=== PATIENT | female | born 1970 | race Hispanic/Latino ===

== ENCOUNTER 2022-10-03 09:40 | Emergency (ER) | payer BC ==
[~2022-10-03] VITALS: Ht 170.2 cm; Wt 92.1 kg
[2022-10-03 10:13] LABS: BASOPHILS % (AUTO) 0.6 % (0.0-5.0); HEMATOCRIT 34.5 % (36-48); LYMPHOCYTES % (AUTO) 30.7 % (21.0-51.0); MEAN CORPUSCULAR HEMOGLOBIN 25.5 pg (27.0-33.0); MEAN CORPUSCULAR HGB CONC 31.6 g/dL (32.0-36.0); MEAN CORPUSCULAR VOLUME 80.8 fL (79-99); MONOCYTES % (AUTO) 7.9 % (3.0-13.0); NEUTROPHILS % (AUTO) 57.2 % (40.0-77.0); PLATELET COUNT (AUTO) 295 K/uL (130-400); RED BLOOD CELL COUNT(AUTO) 4.27 MIL/uL (4.00-5.50); RED CELL DISTRIBUTION WIDTH 15.8 % (11.0-15.5); WHITE BLOOD COUNT (AUTO) 8.7 K/uL (4.8-10.8)
[2022-10-03 10:18] LABS: APPEARANCE,URINE CLEAR (CLEAR); BILIRUBIN,URINE SMALL mg/dL (NEGATIVE); COLOR,URINE YELLOW (YELLOW); GLUCOSE, URINE (UA) NEGATIVE (NEGATIVE); KETONES,URINE NEGATIVE (NEGATIVE); LEUKOCYTE ESTERASE ,URINE NEGATIVE Leu/uL (NEGATIVE); NITRATE,URINE NEGATIVE (NEGATIVE); OCCULT BLOOD,URINE LARGE (NEGATIVE); PROTEIN,URINE 30 mg/dL (NEGATIVE); UROBILINOGEN,URINE 0.2 mg/dL (0.2-1.0)
[2022-10-03 10:25] LABS: CREATININE 0.7 mg/dL (0.5-1.5); POTASSIUM 3.9 mmol/L (3.5-5.1)
[2022-10-03 10:32] LABS: TOTAL PROTEIN, SERUM 8.2 g/dL (6.0-8.3)
[2022-10-03 10:35] LABS: HCG,QUALITATIVE URINE NEGATIVE (NEGATIVE)
[2022-10-03 10:41] LABS: RBC,URINE 26-50 /HPF (0-1)
[2022-10-03 10:42] LABS: BACTERIA,URINE Few /HPF (None Seen)
[2022-10-03 10:43] LABS: WBC,URINE 0-1 /HPF (0-1)
[2022-10-03 16:20] VITALS: BP 144/73
[2022-10-03] MEDS ORDERED: 0.9%NACL 1000ML 1,000 ML IV ONE (17:00)
[2022-10-03] MEDS ORDERED: METOCLOPRAMIDE 10 MG/2 ML VIAL IVP ONE (17:00)
[2022-10-03] MEDS ORDERED: KETOROLAC 30MG VIAL (30MG/ML) IVP ONE (17:00)
[2022-10-03] MEDS ORDERED: FAMOTIDINE 20MG VIAL IV ONE (17:00)
[2022-10-03] MEDS ORDERED: CEFTRIAXONE 2GM VIAL IVPB ONE (17:00)
[2022-10-03] MEDS ORDERED: FERS325 PO (17:59)
[2022-10-03] MEDS ORDERED: POLY17PO4 PO (17:59)
[2022-10-03] MEDS ORDERED: CEPH500B PO (17:59)
== END 2022-10-03 19:17 | disposition home or self-care (01) ==
LOC: EDH 09:40
DX: N92.4 Excessive bleeding in the premenopausal period (principal); D64.9 Anemia, unspecified; N39.0 Urinary tract infection, site not specified; D25.9 Leiomyoma of uterus, unspecified; I10 Essential (primary) hypertension; Z79.899 Other long term (current) drug therapy
CPT/HCPCS: 99284; 96374; 96375; 76856; 96361; 80053; 85025; 81001; 81025; 36415; J3490; J7030; J0696; J1885; J2765

== ENCOUNTER → 2022-10-28 | Outpatient (CLI) | payer BC ==
[~2022-10-28] MED LIST: CEPH500B PO; FERS325 PO; POLY17PO4 PO
== END | disposition home or self-care (01) ==
LOC: RAH 10:59
PROVIDERS: ATTEND Family Medicine
DX: Z12.31 Encounter for screening mammogram for malignant neoplasm of breast (principal)
CPT/HCPCS: 77067